=== PATIENT | male | born 1960 | race Caucasian/White ===

== ENCOUNTER → 2018-02-27 | Outpatient (CLI) | payer OTHER ==
[~2018-02-27] MED LIST: IOPAMIDOL 300MG/ML 100 ML INFUS..BTL IV ONE
[2018-02-27 08:29] LABS: BLOOD UREA NITROGEN 16 mg/dL (7-26); BUN/CREATININE RATIO 14 (6-25); CREATININE, SERUM 1.11 mg/dL (0.72-1.25); EST GLOMERULAR FILTRATION RATE > 60 ML/MIN (60-)
--- NOTE | 2018-02-27 10:05 | Diagnostic Imaging Report ---
PROCEDURE: INTRAVENOUS PYELOGRAM (IVP) COMPARISON: None. INDICATIONS: ASYMPTOMATIC MICROSCOPIC HEMATURIA TECHNIQUE: A heart coordinator film was obtained demonstrating a nonobstructive gas pattern. There are no masses or abnormal calcifications. Minimal marginal osteophytes are present within the lumbar spine. After intravenous administration of 100 cc of omnipaque 300, multiple frontal and oblique images of the abdomen and pelvis were obtained with and without compression. Post void images were also obtained. FINDINGS: [employer] radiograph shows a nonobstructive bowel gas pattern with a single right hemipelvic calcification. KIDNEYS: Renal position, contours, and sizes are normal. There is prompt bilateral excretion of contrast. The calices and renal pelves are normal in appearance bilaterally without evidence of dilatation or filling defect. URETERS: Both ureters are fully visualized in their course to the bladder with normal course and caliber. No evidence of irregularity or filling defect. Right hemipelvic calcification is shown to lie external to the ureter and likely represents a phlebolith. BLADDER: Normal. No significant post void residual. OTHER: Negative. CONCLUSION: Normal intravenous pyelogram. Dictated by: Yasir Garrett M.D. on 02/27/2018 at 10:08 Electronically approved by: Yasir Garrett M.D. on 02/27/2018 at 10:08
== END ==
LOC: EDBD → DX 07:34
PROVIDERS: ATTEND Urology
DX: R31.21 Asymptomatic microscopic hematuria (principal)
CPT/HCPCS: 36415; 74400; 82565; 84520; Q9967